=== PATIENT | male | born 1985 | race Caucasian/White ===

== ENCOUNTER 2021-12-15 06:24 | Day surgery (SDC) | payer OTHER | END 2021-12-15 18:00 | disposition home or self-care (01) | LOC: CIR.AMB 06:24 | PROVIDERS: ATTEND Orthopaedic Surgery Hand Surgery | DX: M66.241 Spontaneous rupture of extensor tendons, right hand (principal); Z20.822 Contact with and (suspected) exposure to COVID-19; Z88.8 Allergy status to other drugs, medicaments and biological substances ==